=== PATIENT | female | born 2005 | race Caucasian/White ===

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

== ENCOUNTER 2023-01-10 03:43 | Emergency (ER) | payer OTHER ==
[2023-01-10] MEDS ORDERED: Acetaminophen 325 MG TAB ONE (04:20)
[2023-01-10] MEDS ORDERED: Dexamethasone 10 MG/ML VIAL ONE (04:20)
== END 2023-01-10 04:26 | disposition home or self-care (01) ==
LOC: CSHERS 03:43
DX: O99.512 Diseases of the respiratory system complicating pregnancy, second trimester (principal); J02.9 Acute pharyngitis, unspecified; Z3A.14 14 weeks gestation of pregnancy
CPT/HCPCS: 99283; J1100

== ENCOUNTER 2023-06-01 11:40 | Day surgery (SDC) | payer OTHER ==
[2023-06-01 12:07] VITALS: BMI 18.5
[2023-06-01 13:11] LABS: Bilirubin Neg (Negative); Blood, Urine 10 (Negative); Clarity Clear (Clear); Glucose, Urine (Dipstick) Normal (Negative); Ketone, Urine Negative (Negative); Leukocyte 500 (Negative); Nitrite Negative (Negative); Protein, Urine (Dipstick) Negative (Neg-Trace); Specific Gravity, Urine 1.005 (1.005-1.030); Urobilinogen Normal mg/dL (Less than 2)
[2023-06-01 13:45] LABS: Bacteria/HPF Rare-Few HPF (None Seen); CAUTI Indications for Culture Pelvic or flank pain; RBC/HPF 0-3 HPF (0-3); Squamous Epithelial 0-3 HPF (0-3)
[2023-06-01 13:47] LABS: Urine Culture Reflex No No
[2023-06-01] MEDS ORDERED: hydrALAZINE 20 MG/ML VIAL SLOW IVP PRN (14:44)
[2023-06-01] MEDS ORDERED: Lactated Ringer's 1,000 ML IV SCH (14:45)
== END 2023-06-01 17:15 | disposition home or self-care (01) ==
LOC: CSHLD/OP 11:40
PROVIDERS: ATTEND Obstetrics & Gynecology
DX: O99.891 Other specified diseases and conditions complicating pregnancy (principal); R10.9 Unspecified abdominal pain; O47.03 False labor before 37 completed weeks of gestation, third trimester; O99.343 Other mental disorders complicating pregnancy, third trimester; F31.9 Bipolar disorder, unspecified; F41.9 Anxiety disorder, unspecified; Z90.89 Acquired absence of other organs; Z3A.35 35 weeks gestation of pregnancy
CPT/HCPCS: 81001

== ENCOUNTER 2023-06-07 19:56 | Inpatient (IN) | payer OTHER ==
[2023-06-07 20:26] VITALS: BMI 18.5
[2023-06-07] MEDS ORDERED: hydrALAZINE 20 MG/ML VIAL SLOW IVP PRN ×2 (21:11→22:41)
[2023-06-07] MEDS ORDERED: Lidocaine 1% (PF) 30 ML VIAL SC PRN (22:41)
[2023-06-07] MEDS ORDERED: Acetaminophen 500 MG TAB PO PRN (22:41)
[2023-06-07] MEDS ORDERED: Ondansetron PF 4 MG/2 ML Vial IVP PRN (22:41)
[2023-06-07] MEDS ORDERED: Misoprostol 200 MCG TAB PR PRN (22:41)
[2023-06-07] MEDS ORDERED: Tranexamic Acid 1,000 MG/10 ML VIAL IVP PRN (22:41)
[2023-06-07] MEDS ORDERED: Carboprost 250 MCG/ML AMP IM PRN (22:41)
[2023-06-07] MEDS ORDERED: Methylergonovine 0.2 MG/ML VIAL IM PRN (22:41)
[2023-06-07] MEDS ORDERED: Promethazine HCl 25 MG/ML VIAL IM PRN (22:41)
[2023-06-07] MEDS ORDERED: fentaNYL 50 mcg/mL 1 mL Vial SLOW IVP PRN (22:41)
[2023-06-07] MEDS ORDERED: HYDROcodone/Acetaminophen 5/325 mg Tablet PO PRN ×2 (22:41)
[2023-06-07] MEDS ORDERED: Zolpidem Tartrate 5 MG TAB PO PRN (22:41)
[2023-06-07] MEDS ORDERED: Ibuprofen 800 MG TAB PO PRN (22:41)
[2023-06-07] MEDS ORDERED: Lactated Ringer's 1,000 ML IV SCH ×2 (22:45)
[2023-06-07] MEDS ORDERED: NS w/ Oxytocin 30 units 500 ML IV SCH (22:45)
[2023-06-08 00:52] LABS: HBSAg Index 0.18 S/CO (0-0.99); Hep B Surf Ag - L&D Non-Reactive S/CO (NonReactive); Syphilis Antibody Nonreactive (Nonreactive); Syphilis Antibody Index 0.12 S/CO (<1.00 Non-Reactive)
[2023-06-08 00:57] LABS: Hemoglobin 10.2 g/dL (12.0-15.5); Mean Corpuscular HGB CONC 30.7 g/dL (32.0-36.0); Mean Corpuscular Hemoglobin 24.9 pg (27.0-33.0); Mean Corpuscular Volume 81.2 fl (81.6-98.3); Mean Platelet Volume 12.3 fl (7.4-10.4); Platelet Count 193 10x3/uL (150-450); RBC Distribution Width 13.2 % (11.5-14.5); Red Blood Cell (RBC) Count 4.09 10x6/uL (3.90-5.03); White Blood Cell (WBC) Count 9.9 10x3/uL (3.5-10.5)
[2023-06-08] MEDS ORDERED: fentaNYL/Ropivacaine Epidural 100 ML ONE (07:40)
[2023-06-08] MEDS ORDERED: Naloxone HCl 0.4 mg/ml Vial IVP PRN ×2 (08:08)
[2023-06-08] MEDS ORDERED: Acetaminophen 325 MG TAB PO PRN (08:08)
[2023-06-08] MEDS ORDERED: Lactated Ringer's 500 ML IV PRN (08:08)
[2023-06-08] MEDS ORDERED: Promethazine HCl 25 MG/ML VIAL IM PRN (08:08)
[2023-06-08] MEDS ORDERED: diphenhydrAMINE 50 MG/ML VIAL IVP PRN (08:08)
[2023-06-08] MEDS ORDERED: Ondansetron PF 4 MG/2 ML Vial IVP PRN ×2 (08:08→16:33)
[2023-06-08] MEDS ORDERED: ePHEDrine Sulfate 50 MG/10 ML VIAL SLOW IVP PRN (08:08)
[2023-06-08] MEDS ORDERED: Moisturizing Cream (Eucerin) 113 GM JAR TOP PRN (08:08)
[2023-06-08] MEDS ORDERED: Communication Order-Pharmacy FS SCH (08:15)
[2023-06-08] MEDS ORDERED: fentaNYL 2 mcg/Ropivacaine 0.2% Epidural 100 ML CADD EPIDURAL SCH (08:15)
[2023-06-08] MEDS ORDERED: diphenhydrAMINE 25 MG CAP PO PRN (16:33)
[2023-06-08] MEDS ORDERED: HYDROcodone/Acetaminophen 5/325 mg Tablet PO PRN (16:33)
[2023-06-08] MEDS ORDERED: Preparation H Ointment 28 GM TUBE PR PRN (16:33)
[2023-06-08] MEDS ORDERED: Bisacodyl 10 MG SUPP PR PRN (16:33)
[2023-06-08] MEDS ORDERED: hydrALAZINE 20 MG/ML VIAL SLOW IVP PRN (16:33)
[2023-06-08] MEDS ORDERED: Milk Of Magnesia 30 ML UDCUP PO PRN (16:33)
[2023-06-08] MEDS ORDERED: Boostrix 0.5 ML (Tdap) VIAL (>/=7 yrs of age) IM ONE (16:33)
[2023-06-08] MEDS ORDERED: Benzocaine-Menthol 82.5 ML CAN TOP PRN (16:33)
[2023-06-08] MEDS ORDERED: Lanolin Ointment 7 GM TUBE TOP PRN (16:33)
[2023-06-08] MEDS: Ibuprofen 800 MG TAB PO SCH (16:58)
[2023-06-08] MEDS: Ferrous Sulfate 325 MG TAB PO SCH (18:41)
[2023-06-08] MEDS: Docusate 100 MG CAP PO SCH (21:15)
[2023-06-09] MEDS: Ibuprofen 800 MG TAB PO SCH ×3 (00:44→16:28)
[2023-06-09] MEDS: HYDROcodone/Acetaminophen 5/325 mg Tablet PO PRN ×2 (07:25→14:31)
[2023-06-09] MEDS: Docusate 100 MG CAP PO SCH ×2 (08:51→21:30)
[2023-06-09] MEDS: Prenatal Vitamin 1 TAB PO SCH (08:51)
[2023-06-09] MEDS: Ferrous Sulfate 325 MG TAB PO SCH ×2 (13:01→16:57)
[2023-06-10] MEDS: Ibuprofen 800 MG TAB PO SCH ×2 (01:20→09:12)
[2023-06-10 07:38] VITALS: BP 94/52; TEMP 98.4
[2023-06-10] MEDS: Ferrous Sulfate 325 MG TAB PO SCH (09:00)
[2023-06-10] MEDS: Docusate 100 MG CAP PO SCH (09:13)
[2023-06-10] MEDS: Prenatal Vitamin 1 TAB PO SCH (09:13)
== END 2023-06-10 10:20 | disposition home or self-care (01) | DRG 807 ==
LOC: CSHLD/OP 19:56 → CSHLD 22:42 → CSHPP 06-08 16:43
PROVIDERS: ADMIT Obstetrics & Gynecology; ATTEND Obstetrics & Gynecology
PROC: 10E0XZZ Delivery of Products of Conception, External Approach (ICD-10-PCS; principal; 2023-06-08)
PROC: 3E033VJ Introduction of Other Hormone into Peripheral Vein, Percutaneous Approach (ICD-10-PCS; 2023-06-08)
DX: O60.00 Preterm labor without delivery, unspecified trimester (principal); Z37.0 Single live birth; Z3A.36 36 weeks gestation of pregnancy; O60.10X0 Preterm labor with preterm delivery, unspecified trimester, not applicable or unspecified
CPT/HCPCS: 51702; 85027; 86780; 86850; 86900; 86901; 87340; 99285; J7120